=== PATIENT | male | born 1985 | race African-American/Black ===

== ENCOUNTER 2020-08-01 11:32 | Emergency (ER) | payer MEDICAID ==
[~2020-08-01] VITALS: Ht 180.3 cm; Wt 55.0 kg
[2020-08-01] MEDS ORDERED: KETOROLAC 60MG/2ML VIAL IM ONE (12:00)
[2020-08-01] MEDS ORDERED: IBUP-2028 MT (12:56)
[2020-08-01 13:20] VITALS: BP 110/76
== END 2020-08-01 13:21 | disposition home or self-care (01) ==
LOC: ER 11:32
DX: S43.101A Unspecified dislocation of right acromioclavicular joint, initial encounter (principal); V18.0XXA Pedal cycle driver injured in noncollision transport accident in nontraffic accident, initial encounter; Y93.55 Activity, bike riding; Y92.488 Other paved roadways as the place of occurrence of the external cause
CPT/HCPCS: 29105; 73030; 96372; 99283; J1885; A4565